=== PATIENT | female | born 1975 | race Caucasian/White ===

== ENCOUNTER 2020-05-04 13:27 | Emergency (ER) | payer OTHER ==
[~2020-05-04] VITALS: Ht 157.5 cm; Wt 58.7 kg
[2020-05-04] MEDS ORDERED: LORazepam 1MG TABLET PO ONE (14:00)
[2020-05-04 14:17] LABS: BASOPHILS # (AUTO) 0.02 x10^3/uL (0-0.1); BASOPHILS % (AUTO) 0 % (0-1); EOSINOPHILS # (AUTO) 0.09 x10^3/uL (0-0.4); EOSINOPHILS % (AUTO) 1 % (1-7); LYMPHOCYTES # (AUTO) 1.39 x10^3/uL (1-3.4); LYMPHOCYTES % (AUTO) 21 % (22-44); MD NO; MEAN CORPUSCULAR HGB CONC 33.8 g/dL (32.4-35.8); MEAN CORPUSCULAR VOLUME 91.8 fL (80-100); MEAN PLATELET VOLUME 8.1 fL (7.4-10.4); MONOCYTES # (AUTO) 0.42 x10^3/uL (0.2-0.8); MONOCYTES % (AUTO) 6 % (2-9); NEUTROPHILS # (AUTO) 4.82 x10^3/uL (1.8-6.8); NEUTROPHILS % (AUTO) 72 % (42-75); PLATELET COUNT 289 x10^3/uL (130-400); RED BLOOD COUNT 4.41 x10^6/uL (3.82-5.3); RED CELL DISTRIBUTION WIDTH 13.6 % (9.6-15.2)
[2020-05-04] MEDS ORDERED: LORazepam 1MG TABLET ONE (14:24)
--- NOTE | 2020-05-04 14:25 | NUR ---
MEDICATED PER EMAR (HAS RIDE AVAILABLE) VSS ON FABRICATION TECHNICIAN
[2020-05-04 14:26] VITALS: BP 135/70
[2020-05-04 14:27] LABS: ALBUMIN 3.7 g/dL (3.4-5.0); ANION GAP 6 mmol/L (5-15); CALCIUM 8.5 mg/dL (8.5-10.1); CHLORIDE 108 mmol/L (98-107); CREATININE 0.95 mg/dL (0.55-1.02)
[2020-05-04 14:30] LABS: TROPONIN I < 0.015 ng/mL (0.000-0.045)
--- NOTE | 2020-05-04 15:15 | NUR ---
With reassesment patient reports anxiety from 05/26 to 09/25 Provider to bedside to review poc (dispo) Vss on security monitor
--- NOTE | 2020-05-04 15:21 | NUR ---
assumed care for dc only. Patient/Caregiver given discharge instructions and they have confirmed that they understand the instructions. Patient ambulatory with steady gait.
== END 2020-05-04 15:25 | disposition home or self-care (01) ==
LOC: ED 15:20
DX: F41.1 Generalized anxiety disorder (principal); R06.00 Dyspnea, unspecified; R07.89 Other chest pain; R06.4 Hyperventilation
CPT/HCPCS: 36415; 71045; 80048; 82040; 84443; 84484; 84703; 85025; 85379; 93005; 99285